=== PATIENT | female | born 1975 | race Caucasian/White ===

== ENCOUNTER 2017-02-10 22:05 | Emergency (ER) | payer OTHER ==
[~2017-02-10 22:05] MED LIST: LEVAQUIN500 MG PO; PREDNISONE10 MG PO; SYMBICORT 16060 PUFF INH; XOPENEX0.63 MG/3 NEB
== END 2017-02-11 00:35 | disposition home or self-care (01) ==
LOC: ER 22:05
DX: J11.1 Influenza due to unidentified influenza virus with other respiratory manifestations (principal); R10.9 Unspecified abdominal pain; J44.9 Chronic obstructive pulmonary disease, unspecified; Z87.891 Personal history of nicotine dependence
CPT/HCPCS: 87070; 87400; 87880; 99283

== ENCOUNTER 2017-02-15 16:13 | Emergency (ER) | payer OTHER ==
[2017-02-15 17:01] LABS: BASO # 0.1 10_X3_uL (0.0-0.1); BASO % 0.8 % (0.1-1.2); EOS # 0.4 10_X3_uL (0.0-0.4); GRAN # 5.3 10_X3_uL (1.6-6.1); GRAN % 53.9 % (34.0-71.1); HEMATOCRIT 37.4 % (34-45); HEMOGLOBIN 11.7 g/dL (11.2-15.7); LYMPH # 3.3 10_X3_uL (1.2-3.7); LYMPH % 33.5 % (19.3-51.7); MEAN CORPUSCULAR HEMOGLOBIN 27.1 pg (27.0-33.0); MEAN CORPUSCULAR HGB CONC 31.3 g/dL (32.0-36.0); MEAN CORPUSCULAR VOLUME 86.8 fL (79-95); MEAN PLATELET VOLUME 10.9 fl (7.5-11.5); MONO # 0.8 10_X3_uL (0.2-0.9); MONO % 7.8 % (4.7-12.5); PLATELET COUNT 488 x10_3/uL (182-369); RED BLOOD COUNT 4.31 x10_6/uL (3.9-5.2); RED CELL DISTRIBUTION WIDTH 15.3 % (11.7-14.4); WHITE BLOOD COUNT 9.8 x10_3/uL (4.0-10.0)
[2017-02-15 17:18] LABS: ALBUMIN 4.1 gm/dL (3.4-5.0); ALKALINE PHOSPHATASE 50 U/L (50-136); ALT/SGPT 20 U/L (3.5-33.9); AST/SGOT 14 U/L (7.04-26.96); BLOOD UREA NITROGEN 8 mg/dL (7-18); CALCIUM 8.7 mg/dL (8.7-10.7); CARBON DIOXIDE 27 mmol/L (21-32); CREATINE KINASE 100 U/L (21-215); CREATININE 0.5 mg/dL (0.6-1.3); GLUCOSE,RANDOM 104 mg/dL (70-99); POTASSIUM 3.8 mmol/L (3.5-5.1); SODIUM 140 mmol/L (136-145)
== END 2017-02-15 17:57 | disposition home or self-care (01) ==
LOC: ER 16:13
PROVIDERS: Internal Medicine
DX: R07.9 Chest pain, unspecified (principal); R06.02 Shortness of breath; J44.9 Chronic obstructive pulmonary disease, unspecified; Z88.5 Allergy status to narcotic agent; Z88.1 Allergy status to other antibiotic agents
CPT/HCPCS: 36415; 71020; 80053; 82550; 82553; 85025; 93005; 99284; 99285-25